=== PATIENT | male | born 1975 ===

== ENCOUNTER 2016-12-03 21:24 | Emergency (ER) | payer SELFPAY ==
[2016-12-03 21:43] VITALS: BP 112/70; PULSE 80; RESP 16; TEMP 97; O2SAT 97
[2016-12-03] MEDS ORDERED: Oxycodone/Acetaminophen 5/325 mg Tab PO STA (21:45)
--- NOTE | 2016-12-03 21:48 | C.PDOC ---
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 Patient reports 3 days ago he was lifting a object when he felt the pain come on and has been worsening ever since. Taking motrin with relief which relieved the pain till today. Patient denies nausea, vomiting, abdominal pain, diarrhea, dysuria, hematuria, weakness or numbness. Time Seen by Provider: 12/03/16 21:40 Chief Complaint (Nursing): Back Pain History Per: Patient History/Exam Limitations: no limitations Onset/Duration Of Symptoms: Hrs (3), Worse Since (8pm today) Associated Symptoms: None Past Medical History Reviewed: Historical Data, Nursing Documentation, Vital Signs Vital Signs: Last Vital Signs Temp 97 F L 12/03/16 21:33 Pulse 80 12/03/16 21:33 Resp 16 12/03/16 21:33 BP 112/70 12/03/16 21:33 Pulse Ox 97 12/03/16 23:10 - Medical History PMH: HTN Family History: States: No Known Family Hx - Social History Hx Alcohol Use: No Hx Substance Use: No - Immunization History Hx Tetanus Toxoid Vaccination: No Hx Influenza Vaccination: No Hx Pneumococcal Vaccination: No Review Of Systems Except As Marked, All Systems Reviewed And Found Negative. Gastrointestinal: Negative for: Nausea, Vomiting, Abdominal Pain, Diarrhea Genitourinary: Negative for: Dysuria, Hematuria Musculoskeletal: Positive for: Back Pain (Low back pain ) Neurological: Negative for: Weakness, Numbness Physical Exam - Physical Exam Appears: Well, Non-toxic, No Acute Distress Skin: Warm, Dry, No Rash Head: Atraumatic, Normacephalic Eye(s): bilateral: Normal Inspection, EOMI Nose: Normal Oral Mucosa: Moist Neck: Normal, Normal ROM, No Midline Cervical Tenderness, No Paracervical Tenderness, No Step Off Deformity, Supple Chest: Symmetrical, No Tenderness Cardiovascular: Rhythm Regular Respiratory: Normal Breath Sounds Gastrointestinal/Abdominal: Soft, No Tenderness Back: No CVA Tenderness, No Vertebral Tenderness, Other ((+) Paralumbar tenderness) Extremity: Normal ROM, No Swelling Pulses: Left Dorsalis Pedis: Normal, Right Dorsalis Pedis: Normal Neurological/Psych: Oriented x3, Normal Speech, Normal Motor, Normal Sensation Gait: Steady ED Course And Treatment O2 Sat by Pulse Oximetry: 97 - Other Rad l/s XR X-Ray: Interpreted by Me, Viewed By Me Interpretation: No fx or dislocation Progress Note: On re-valuatoin, pt notes improvment. Steady gate, No incontinence. No change in senstiaon. No saddle anesthia. No abdominal pain. Instructed to follow up wit the clinic in 1-2 days. Medical Decision Making Medical Decision Making: PLAN: * X-Ray - LS Spine * Urinalysis * Percocet PO * Flexeril PO Disposition - Disposition Referrals: [facility] [Outside] Disposition: HOME/ ROUTINE Disposition Time: 23:09 Condition: STABLE Additional Instructions: Follow up with primary medical doctor in 1-3 days without fail for further evaluation. Take medications as prescribed. Return to the emergency department at any time if symptoms persist or worsen. 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 - Scribe Statement The provider has reviewed the documentation as recorded by the Scribe Christie Grove All medical record entries made by the Marcusibmehul were at my direction and personally dictated by me. I have reviewed the chart and agree that the record accurately reflects my personal performance of the history, physical exam, medical decision making, and the department course for this patient. I have also personally directed, reviewed, and agree with the discharge instructions and disposition.
[2016-12-03] MEDS ORDERED: Oxycodone/Acetaminophen 5/325 mg Tab ONE (21:49)
[2016-12-03 22:42] LABS: URINE BILIRUBIN NEGATIVE (NEGATIVE); URINE BLOOD NEGATIVE (NEGATIVE); URINE COLOR Colorless (YELLOW); URINE GLUCOSE (UA) NORMAL (Normal); URINE KETONE NEGATIVE (NEGATIVE); URINE LEUKOCYTE ESTERASE NEG Leu/uL (Negative); URINE PROTEIN NEGATIVE (NEGATIVE); URINE UROBILINOGEN NORMAL mg/dL (0.2-1.0)
--- NOTE | 2016-12-04 09:30 | RAD ---
PROCEDURE: Radiographs of the Lumbar Spine. HISTORY: pain COMPARISON: No prior. FINDINGS: BONES: Vertebral bodies are maintained in height. Transverse processes and posterior elements are intact. Mild levo scoliotic curvature. This may be positional. There is no listhesis. DISC SPACES: Unremarkable. OTHER FINDINGS: None. IMPRESSION: Mild levo scoliotic curvature. Otherwise unremarkable.
== END 2016-12-03 23:17 | disposition home or self-care (01) ==
LOC: C.ER 21:24
DX: M54.5 Low back pain (principal)

== ENCOUNTER 2017-05-02 17:01 | Emergency (ER) | payer SELFPAY ==
[2017-05-02 17:51] VITALS: RESP 18; TEMP 99.3
--- NOTE | 2017-05-02 19:02 | C.PDOC ---
History Of Present Illness 41 y/o male who presents to the ED complaining of mass on right side of mouth that has been gradually worsening for the past six years. Patient reports two weeks ago he accidentally bit the mass, and noticed it has become larger with swelling to the area. He notes he has been applying Turmeric paste to the affected area. Patient also states it is painful due to biting the mass. Patient denies any difficulty swallowing, fever, bleeding, or changes in weight. He was a former smoker who quit August 2015. Time Seen by Provider: 05/02/17 17:57 Chief Complaint (Nursing): Dental Pain History Per: Patient History/Exam Limitations: no limitations Onset/Duration Of Symptoms: Gradual, Worse Since (2 weeks ago) Current Symptoms Are (Timing): Still Present Severity: Mild Past Medical History Reviewed: Historical Data, Nursing Documentation, Vital Signs Vital Signs: Last Vital Signs Temp 99.3 F 05/02/17 17:43 Pulse 78 05/02/17 19:10 Resp 18 05/02/17 19:10 BP 130/75 05/02/17 19:10 Pulse Ox 100 05/02/17 19:41 - Medical History PMH: HTN Family History: States: Unknown Family Hx - Social History Hx Alcohol Use: No Hx Substance Use: No - Immunization History Hx Tetanus Toxoid Vaccination: No Hx Influenza Vaccination: No Hx Pneumococcal Vaccination: No Review Of Systems Constitutional: Negative for: Fever, Weight loss ENT: Positive for: Other (painful mass on right side of mouth with swelling ) Respiratory: Negative for: Shortness of Breath Gastrointestinal: Negative for: Vomiting Neurological: Negative for: Headache Physical Exam - Physical Exam Appears: Well, Non-toxic, No Acute Distress Skin: Warm, Dry, No Diaphoretic, No Pale, No Rash, No Jaundice Head: Atraumatic, Normacephalic Eye(s): bilateral: Normal Inspection, EOMI Nose: Normal Oral Mucosa: Moist, Other (right side buccal mucosa has a soft cauliflower looking mass. no bleeding) Tongue: Normal Appearing, No Bleeding Lips: Normal Appearing, No Swelling Teeth: Normal Dentition (fair dentition), Caries (multiple caries), No Loose Throat: Normal, No Erythema, No Exudate, No Drooling Neck: Normal ROM Chest: Symmetrical Cardiovascular: Rhythm Regular, No Murmur Respiratory: Normal Breath Sounds, No Wheezing Extremity: Bilateral: Atraumatic, Normal ROM Neurological/Psych: Oriented x3, Normal Speech Gait: Steady ED Course And Treatment O2 Sat by Pulse Oximetry: 100 (room air) Pulse Ox Interpretation: Normal Medical Decision Making Medical Decision Making: Impression: mass in mouth. Discussed case with Dr Soto who also examined patient and recommended consult with ENT [address] Alford who recommends follow up tomorrow in his office Patient remained well with no fever and stable vital signs. Discuss and he agrees with plan for discharge and will see ENT tomorrow. Disposition Counseled Patient/Family Regarding: Need For Followup - Disposition Referrals: Clinic,Med Surg [Primary Care Provider] - Gustavo Alford MD [Staff Provider] - Disposition: HOME/ ROUTINE Disposition Time: 18:59 Condition: STABLE Additional Instructions: Please follow up with ENT DR Alford tomorrow Instructions: Cavity Preventive (For the teeth or gums) Forms: [facility] (Danish) - POA Present On Arrival: None - Clinical Impression Clinical Impression: Mass of buccal mucosa - Scribe Statement The provider has reviewed the documentation as recorded by the Scribe 05/02/2017 Scribe Attestation: Isabel Saez MD Scribe Attestation: All medical record entries made by the Scribe were at my direction and personally dictated by me. I have reviewed the chart and agree that the record accurately reflects my personal performance of the history, physical exam, medical decision making, and the department course for this patient. I have also personally directed, reviewed, and agree with the discharge instructions and disposition.
[2017-05-02 19:10] VITALS: BP 130/75; PULSE 78
[2017-05-02 19:37] VITALS: O2SAT 100
== END 2017-05-02 19:11 | disposition home or self-care (01) ==
LOC: SUPCPDRO 17:01 → C.ER 17:01
DX: K13.79 Other lesions of oral mucosa (principal)

== ENCOUNTER 2017-11-02 18:05 | Emergency (ER) | payer SELFPAY ==
[2017-11-02 18:13] VITALS: O2SAT 98
[2017-11-02] MEDS ORDERED: Lidocaine 5% Patch TD STA (19:38)
[2017-11-02] MEDS ORDERED: Oxycodone/Acetaminophen 5/325 mg Tab PO STA (19:39)
[2017-11-02] MEDS ORDERED: Oxycodone/Acetaminophen 5/325 mg Tab ONE (20:14)
[2017-11-02] MEDS ORDERED: Lidocaine 5% Patch TD ONE (20:17)
--- NOTE | 2017-11-02 21:07 | C.PDOC ---
History Of Present Illness 42 y/o male presents to the ED for evaluation of back pain x 1 day. States he lifted a heavy object, now complaining of back pain. Reports Hx of low back pain in the past. Patient still able to ambulate, with pain. Denies any associated incontinence, hematuria, numbness, or lower extremity weakness. Time Seen by Provider: 11/02/17 19:18 Chief Complaint (Nursing): Back Pain History Per: Patient History/Exam Limitations: no limitations Onset/Duration Of Symptoms: Hrs Current Symptoms Are (Timing): Still Present Previous Symptoms: Back Pain Past Medical History Reviewed: Historical Data, Nursing Documentation, Vital Signs Vital Signs: Last Vital Signs Temp 97.9 F 11/02/17 21:20 Pulse 81 11/02/17 21:20 Resp 18 11/02/17 21:20 BP 115/72 11/02/17 21:20 Pulse Ox 98 11/02/17 21:20 - Medical History PMH: Diabetes, HTN Other Surgeries: Right leg surgery Family History: States: Unknown Family Hx - Social History Hx Alcohol Use: No Hx Substance Use: No - Immunization History Hx Tetanus Toxoid Vaccination: No Hx Influenza Vaccination: No Hx Pneumococcal Vaccination: No Review Of Systems Except As Marked, All Systems Reviewed And Found Negative. Constitutional: Negative for: Fever, Chills Genitourinary: Negative for: Incontinence, Hematuria Musculoskeletal: Positive for: Back Pain Neurological: Negative for: Weakness, Numbness Physical Exam - Physical Exam Appears: Non-toxic, No Acute Distress Skin: Normal Color, Warm, Dry Head: Atraumatic, Normacephalic Eye(s): bilateral: Normal Inspection, PERRL, EOMI Oral Mucosa: Moist Back: No Vertebral Tenderness, Paraspinal Tenderness (left paralumbar), Other ( Tenderness to left buttock) Extremity: Bilateral: Normal Color And Temperature, Normal ROM Neurological/Psych: Oriented x3, Normal Speech, Normal Motor, Normal Sensation, No Other (neurological deficits) ED Course And Treatment O2 Sat by Pulse Oximetry: 98 (RA) Pulse Ox Interpretation: Normal - Other Rad x-ray LS spine X-Ray: Interpreted by Me, Viewed By Me Interpretation: Mild degenerative joint changes, no fracture or dislocation Progress Note: Given Toradol IM, Valium PO, Percocet PO, and Lidoderm patch. Pending x-ray result. LS spine x-ray shows mild degenerative joint changes, no acute findings. On reevaluation pt reports improvement with resolution of back pain. Pt is ambulatory in the ED with steady gait and stable for d/c home Reevaluation Time: 21:00 Reassessment Condition: Improved Disposition Counseled Patient/Family Regarding: Studies Performed, Diagnosis, Need For Followup, Rx Given - Disposition Referrals: Bisi Gordon MD [Staff Provider] - Disposition: HOME/ ROUTINE Disposition Time: 21:04 Condition: STABLE Additional Instructions: Follow up with PMD within 1-2 days. Return to ED if feel worse. 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 - Scribe Statement The provider has reviewed the documentation as recorded by the Scribe (Yas Sorensen) All medical record entries made by the Scribe were at my direction and personally dictated by me. I have reviewed the chart and agree that the record accurately reflects my personal performance of the history, physical exam, medical decision making, and the department course for this patient. I have also personally directed, reviewed, and agree with the discharge instructions and disposition.
[2017-11-02 21:27] VITALS: BP 115/72; PULSE 81; RESP 18; TEMP 97.9
--- NOTE | 2017-11-03 08:16 | RAD ---
PROCEDURE: Radiographs of the Lumbar Spine. HISTORY: back pain COMPARISON: Lumbar spine radiographs dated 12/03/2016. FINDINGS: BONES: Gentle levoconvex curvature, centered at L3. No listhesis. No fracture. DISC SPACES: Unremarkable. OTHER FINDINGS: None. IMPRESSION: Unremarkable radiographs of the lumbar spine.
== END 2017-11-02 21:20 | disposition home or self-care (01) ==
LOC: C.ER 18:05
DX: S39.012A Strain of muscle, fascia and tendon of lower back, initial encounter (principal); X50.0XXA Overexertion from strenuous movement or load, initial encounter
CPT/HCPCS: 72100; 96372; 99284; J1885

== ENCOUNTER 2018-06-12 10:49 | Emergency (ER) | payer SELFPAY ==
[2018-06-12 10:54] VITALS: BP 137/88; PULSE 89; RESP 18; O2SAT 100
--- NOTE | 2018-06-12 11:13 | C.PDOC ---
History Of Present Illness 42 year old male presents to the ED complaining of pain to the right buccal mucosa and right lower gum status post surgery of excision of HPV lesion at [facility] 9 days ago. Reports the lesion was excised before but it returned on the same spot. Noted minor oozing to surgical site which prompted today's ED visit. Time Seen by Provider: 06/12/18 10:55 Chief Complaint (Nursing): Dental Pain History Per: Patient History/Exam Limitations: no limitations Onset/Duration Of Symptoms: Days Current Symptoms Are (Timing): Still Present Quality: Positive for: "Pain" Past Medical History Reviewed: Historical Data, Nursing Documentation, Vital Signs Vital Signs: Last Vital Signs Temp Pulse 89 06/12/18 10:50 Resp 18 06/12/18 10:50 BP 137/88 06/12/18 10:50 Pulse Ox 100 06/12/18 10:50 - Medical History PMH: Diabetes, HTN Other Surgeries: Hx of surgeries Family History: States: No Known Family Hx - Social History Hx Alcohol Use: No Hx Substance Use: No - Immunization History Hx Tetanus Toxoid Vaccination: No Hx Influenza Vaccination: No Hx Pneumococcal Vaccination: No Review Of Systems Except As Marked, All Systems Reviewed And Found Negative. Constitutional: Negative for: Fever, Chills ENT: Positive for: Other (dental pain ) Physical Exam - Physical Exam Appears: Non-toxic Skin: Warm, Dry Head: Normacephalic Eye(s): bilateral: Normal Inspection Nose: Normal Oral Mucosa: Moist, Other (right buccal mucosa healing sutures in place, no bleeding, right lower gum line also healing post surgery. very minor oozing. gauze with pression applied. ) Throat: Normal Neck: Supple Extremity: Normal ROM Neurological/Psych: Oriented x3, Normal Speech Gait: Steady ED Course And Treatment O2 Sat by Pulse Oximetry: 100 (RA) Pulse Ox Interpretation: Normal Medical Decision Making Medical Decision Making: Patient and family would like to go to [facility], where surgery was originally performed. Patient seen by Dr. Claire, who agreed to let patient go to [facility] due to good homeostasis. Disposition Counseled Patient/Family Regarding: Diagnosis, Need For Followup - Disposition Referrals: Sienna Gordon MD [Medical Doctor] - Disposition: HOME/ ROUTINE Disposition Time: 11:11 Condition: STABLE Additional Instructions: FOLLOW UP WITH YOUR DOCTOR IN [facility] FOR RE-EVALUATION. IF BLEEDING, FEVER, PAIN DEVELOP RETURN TO ED. 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 - Scribe Statement The provider has reviewed the documentation as recorded by the Scribe Ansley Grossman All medical record entries made by the Marcusibe were at my direction and personally dictated by me. I have reviewed the chart and agree that the record accurately reflects my personal performance of the history, physical exam, medical decision making, and the department course for this patient. I have also personally directed, reviewed, and agree with the discharge instructions and disposition.
[2018-06-12 11:15] VITALS: TEMP 98.1
== END 2018-06-12 11:26 | disposition home or self-care (01) ==
LOC: C.ER 10:49
DX: Z48.01 Encounter for change or removal of surgical wound dressing (principal)